=== PATIENT | male | born 1970 ===

== ENCOUNTER 2020-06-21 10:12 | Day surgery (SDC) | payer BC ==
[~2020-06-21 10:12] MED LIST: Lactated Ringers 1,000 ML IV SCH
--- NOTE | 2020-06-21 11:15 | PCM.PREANE ---
Preanesthetic Assessment - Anesthesia/Transfusion/Family Hx Anesthesia History: Prior Anesthesia Without Reaction Family History of Anesthesia Reaction: No Transfusion History: No Prior Transfusion(s) Intubation History: Unknown - Review of Systems General: No Symptoms Pulmonary: No Symptoms Cardiovascular: No Symptoms Gastrointestinal: Abdominal Pain, Hematochezia Neurological: No Symptoms Other: Reports: None - Physical Assessment Vital Signs: Last Vital Signs Temp 36.8 C 06/21/20 11:00 Pulse 84 06/21/20 11:00 Resp 16 06/21/20 11:00 BP 135/73 06/21/20 11:00 Pulse Ox 96 06/21/20 11:00 Height: 5 ft 10 in Weight: 134.717 kg ASA Class: 2 Mental Status: Alert & Oriented x3 Airway Class: Mallampati = 3 Dentition: Reports: Normal Dentition (bonded front tooth x1) Thyro-Mental Finger Breadths: 3 Mouth Opening Finger Breadths: 2 ROM/Head Extension: Full Lungs: Clear to Auscultation, Normal Respiratory Effort Cardiovascular: Regular Rate, Regular Rhythm - Allergies Allergies/Adverse Reactions: Allergies Allergy/AdvReac Type Severity Reaction Status Date / Time animal dander Allergy itchy/watery Verified 06/15/20 08:30 eyes Penicillins Allergy Rash Verified 06/15/20 08:17 - Blood Blood Available: No - Anesthesia Plan Pre-Op Medication Ordered: None - Acknowledgements Anesthesia Type Planned: MAC Pt an Appropriate Candidate for the Planned Anesthesia: Yes Alternatives and Risks of Anesthesia Discussed w Pt/Guardian: Yes Pt/Guardian Understands and Agrees with Anesthesia Plan: Yes PreAnesthesia Questionnaire HEENT History: Reports: Other (See Below) Other HEENT History: wears glasses Cardiovascular History: Reports: Hypertension Respiratory History: Reports: Asthma (mild) Gastrointestinal History: Reports: GERD Genitourinary History: Reports: None Musculoskeletal History: Reports: Fracture, Gout Other Musculoskeletal History: hx fx leg Neurological History: Reports: None Psychiatric History: Reports: None Endocrine/Metabolic History: Reports: Obesity/BMI 30+ (BMI 42.6) Hematologic History: Reports: None Immunologic History: Reports: None Oncologic (Cancer) History: Reports: None Dermatologic History: Reports: None - Past Surgical History Head Surgeries/Procedures: Reports: None HEENT Surgical History: Reports: None Cardiovascular Surgical History: Reports: None Respiratory Surgical History: Reports: None GI Surgical History: Reports: Hernia, Abdominal Male Surgical History: Reports: None Endocrine Surgical History: Reports: None Neurological Surgical History: Reports: None Musculoskeletal Surgical History: Reports: None Oncologic Surgical History: Reports: None Dermatological Surgical History: Reports: None - SUBSTANCE USE Tobacco Use Status *Q: Never Tobacco User - HOME MEDS Home Medications: Home Meds Albuterol [Proventil HFA] 2 puff INH Q4H PRN 06/15/20 [History] Allopurinol [Zyloprim] 300 mg PO DAILY 06/15/20 [History] Aspirin 325 mg PO DAILY 06/15/20 [History] Colchicine [Colcrys] 2 tab PO ASDIRECTED PRN 06/15/20 [History] Fluticasone Propionate [Flovent Hfa] 2 puff INH BID PRN 06/15/20 [History] Losartan Potassium 100 mg PO DAILY 06/15/20 [History] Omeprazole 20 mg PO DAILY 06/15/20 [History] amLODIPine Besylate [Amlodipine Besylate] 10 mg PO DAILY 06/15/20 [History] Arbonne Tab/Immune Support 1 tab PO DAILY 06/21/20 [History] - CURRENT (IN HOUSE) MEDS Current Meds: Current Medications Lactated Ringer's (Ringers, Lactated) 1,000 mls @ 125 mls/hr IV ASDIRECTED TIM Last Admin: 06/21/20 10:59 Dose: 125 mls/hr Documented by:
[2020-06-21] MEDS ORDERED: Propofol 200 MG/20 ML SDV ONE ×3 (11:28→13:09)
[2020-06-21] MEDS ORDERED: fentaNYL 100 MCG/2 ML SDV ONE (11:29)
[2020-06-21] MEDS ORDERED: Midazolam 1 MG/ML 2 ML SDV ONE (12:35)
--- NOTE | 2020-06-21 13:41 | PCM.OPNOTE ---
- General Post-Op/Procedure Note Date of Surgery/Procedure: 06/21/20 Operative Procedure(s): Colonoscopy Pre Op Diagnosis: Rectal bleeding. Desire for colorectal cancer screening. Post-Op Diagnosis: Sigmoid diverticulosis Anesthesia Technique: MAC (ASA II) Primary Surgeon: Eliel Murillo Condition: Good Free Text/Narrative:: DICTATION 140267 CPT CODE [id number]
[2020-06-21] MEDS ORDERED: Lactated Ringers 1,000 ML IV SCH (13:45)
--- NOTE | 2020-06-21 13:53 | PCM.POSTAN ---
POST ANESTHESIA ASSESSMENT - MENTAL STATUS Mental Status: Alert, Oriented - VITAL SIGNS Vital Signs: Last Vital Signs Temp 36.8 C 06/21/20 11:00 Pulse 82 06/21/20 13:40 Resp 12 06/21/20 13:40 BP 110/83 06/21/20 13:40 Pulse Ox 95 06/21/20 13:40 - RESPIRATORY Respiratory Status: Respiratory Rate WNL, Airway Patent, O2 Saturation Stable - CARDIOVASCULAR CV Status: Pulse Rate WNL, Blood Pressure Stable - GASTROINTESTINAL GI Status: No Symptoms - PAIN Pain Score: 0 - POST OP HYDRATION Hydration Status: Adequate & Stable - OBSERVATIONS Free Text/Narrative:: No anesthesia problems
--- NOTE | 2020-06-21 14:11 | PCM48HPAN ---
Post Anesthesia Note - EVALUATION WITHIN 48HRS OF ANESTHETIC Vital Signs in Normal Range: Yes Patient Participated in Evaluation: Yes Respiratory Function Stable: Yes Airway Patent: Yes Cardiovascular Function Stable: Yes Hydration Status Stable: Yes Pain Control Satisfactory: Yes Nausea and Vomiting Control Satisfactory: Yes Mental Status Recovered: Yes Vital Signs: Last Vital Signs Temp 36.8 C 06/21/20 11:00 Pulse 82 06/21/20 13:40 Resp 12 06/21/20 13:40 BP 110/83 06/21/20 13:40 Pulse Ox 95 06/21/20 13:40 - COMMENTS/OBSERVATIONS Free Text/Narrative:: No anesthesia problems
--- NOTE | 2020-06-21 16:14 | OR ---
SURGEON: Eliel Murillo M.D. DATE OF PROCEDURE: 06/21/2020 OPERATION PERFORMED: Colonoscopy. PRIMARY SURGEON: Eliel Murillo M.D. ANESTHESIA: MAC. ASA CLASSIFICATION: II. PREOPERATIVE DIAGNOSES: 1. Rectal bleeding. 2. Desire for colorectal cancer screening. POSTOPERATIVE DIAGNOSIS: Moderate sigmoid diverticulosis. DESCRIPTION OF PROCEDURE: The patient was taken to the endoscopy room and positioned on the endoscopy table in the left lateral decubitus position. Time-out was called for appropriate identification of the patient and procedure. Monitored anesthesia care was provided. The colonoscope was inserted into the rectum and advanced with minimal difficulty to the cecum. The colonoscope was retroflexed to visualize the ascending colon from below, then straightened and slowly withdrawn. The cecum, ascending colon, hepatic flexure, transverse colon, splenic flexure, and descending colon showed no tumors, polyps, diverticula, or angiodysplastic changes. The sigmoid colon demonstrated moderate diverticular disease. No stricture, spasm, or bleeding was noted. No inflammatory changes were noted. No polyps were encountered in the sigmoid colon. The colonoscope was further withdrawn to the rectum and retroflexed to visualize the anal orifice from above. No tumors, polyps, or acute hemorrhoidal changes were noted. The colonoscope was then straightened, the rectum aspirated, and the colonoscope removed. The patient tolerated the procedure well and was taken to the recovery room in stable condition. ALEJANDRA DASH /[id number]
== END 2020-06-21 14:12 | disposition home or self-care (01) ==
LOC: MW.SDS 10:12
PROVIDERS: ATTEND Surgery
DX: K57.30 Diverticulosis of large intestine without perforation or abscess without bleeding (principal); Z88.0 Allergy status to penicillin; Z79.899 Other long term (current) drug therapy; Z68.41 Body mass index [BMI] 40.0-44.9, adult; Z98.890 Other specified postprocedural states; E66.9 Obesity, unspecified; Z79.82 Long term (current) use of aspirin
CPT/HCPCS: 45378; J2001; J2250; J2704; J3010; J7120; 00811

== ENCOUNTER 2020-08-09 06:33 | Emergency (ER) | payer BC ==
--- NOTE | 2020-08-09 06:54 | EDM.PDOC ---
<Jairo Varela - Last Filed: 08/09/20 06:53> ED HPI GENERAL MEDICAL PROBLEM - General Chief Complaint: Chest Pain Stated Complaint: HEART ISSUE Time Seen by Provider: 08/09/20 06:45 - History of Present Illness INITIAL COMMENTS - FREE TEXT/NARRATIVE: CHIEF COMPLAINT(S): Chest pain HISTORY OF PRESENT ILLNESS: This is a 50-year-old man and with a past medical history of hypertension and asthma with possibly borderline diabetes who comes to the emergency department with a chief complaint of chest pain. The patient states that approximately 20 minutes prior to arrival after awakening he started to experience sudden onset sharp 7 out of 10. He denies any radiation of the pain. He states that he did get severely diaphoretic but denies any nausea, vomiting, shortness of breath. He denies any aggravating or relieving symptoms however his pain is currently 0 out of 10. He states that he does not have any personal history of CAD but his father does have CAD and his first heart attack was in his 60s. He denies any recent travel, recent surgery, prior history of DVT or PE. REVIEW OF SYSTEMS: Constitutional: For diaphoresis denies fever, chills. Eyes: Denies eye pain Ears, Nose, Mouth, & Throat: Denies earache Cardiovascular: Positive for chest pain Respiratory: Denies shortness of breath Gastrointestinal: Denies Nausea, vomiting, diarrhea, hematochezia. Genitourinary: Denies hematuria Skin:Denies a rash Neurological: Denies blurred vision Psychiatric: Denies depression PAST MEDICAL HISTORY: As per history of present illness and as reviewed below otherwise noncontributory. SURGICAL HISTORY: As per history of present illness and as reviewed below otherwise noncontributory. SOCIAL HISTORY: As per history of present illness and as reviewed below otherwise noncontributory. FAMILY HISTORY: As per history of present illness and as reviewed below otherwise noncontributory. EXAMINATION OF ORGAN SYSTEMS/BODY AREAS: Constitutional: Blood pressure was 146/84, heart rate 67, respiratory rate 22 with an oxygen saturation 97% on room air. Temperature 36.6 General: Overall well-appearing man who is in no acute distress. Psychiatric: Appropriate mood and affect. Eyes: No scleral icterus or conjunctival erythema ENMT: Moist mucous membranes. No pharyngeal erythema Cardiovascular: Regular, rate, and rhythm. No gallops, murmurs, or rubs. Bilateral upper extremity pulses symmetric and intact. No peripheral edema. No JVD. Respiratory: Lungs clear to auscultation bilaterally. No wheezes, rales, or rhonchi. Gastrointestinal: Soft, non-tender, non-distended. Normoactive bowel sounds Genitourinary: No suprapubic tenderness Musculoskeletal: Normal range of motion. Skin: No lesions or abrasions. Neurological: Alert, GCS 15 MEDICAL DECISION MAKING AND COURSE IN THE ED WITH INTERPRETATION/REVIEW OF DIAGNOSTIC STUDIES: This is a 50-year-old man with a past medical history of hypertension and possibly prediabetes who comes to the emergency department with acute right-sided chest pain associated with diaphoresis who is currently asymptomatic was hypertensive with otherwise stable vital signs. At this time we did obtain an EKG which did not reveal any acute signs of ischemia. Will obtain a cardiac work-up and place the patient on cardiac monitoring and pulse oximetry. The patient was provided with 3 and 25 mg prior to arrival. He states that he did take this. Will obtain a chest x-ray. Twelve-lead EKG interpreted by myself. Normal sinus rhythm at a rate of 64beats per minute. Normal axis. RI interval is 179ms. QRS duration is 94ms. ST seg ments are normal without elevations or depressions. No Q waves present. Hypertrophy not noted. There is a T wave inversion in lead III. Interpretation: Normal sinus rhythm with nonspecific T wave inversion. No prior EKGs in our system. DISPOSITION: Patient was signed out to oncoming ED team physician pending laboratory analysis and repeat troponin and x-ray CONDITION: Fair PROCEDURES: None FINAL IMPRESSION(S)/DIAGNOSES: 1. Acute chest pain Jairo Varela M.D. - Related Data Allergies Allergy/AdvReac Type Severity Reaction Status Date / Time animal dander Allergy itchy/watery Verified 08/09/20 06:42 eyes Penicillins Allergy Rash Verified 08/09/20 06:42 Home Meds: Home Meds Albuterol [Proventil HFA] 2 puff INH Q4H PRN 06/15/20 [History] Allopurinol [Zyloprim] 300 mg PO DAILY 06/15/20 [History] Aspirin 325 mg PO DAILY 06/15/20 [History] Colchicine [Colcrys] 2 tab PO ASDIRECTED PRN 06/15/20 [History] Fluticasone Propionate [Flovent Hfa] 2 puff INH BID PRN 06/15/20 [History] Losartan Potassium 100 mg PO DAILY 06/15/20 [History] Omeprazole 20 mg PO DAILY 06/15/20 [History] amLODIPine Besylate [Amlodipine Besylate] 10 mg PO DAILY 06/15/20 [History] Arbonne Tab/Immune Support 1 tab PO DAILY 06/21/20 [History] Past Medical History HEENT History: Reports: Other (See Below) Other HEENT History: wears glasses Cardiovascular History: Reports: Hypertension Respiratory History: Reports: Asthma Gastrointestinal History: Reports: Diverticulosis, GERD Genitourinary History: Reports: None Musculoskeletal History: Reports: Fracture, Gout Other Musculoskeletal History: hx fx leg Neurological History: Reports: None Psychiatric History: Reports: None Endocrine/Metabolic History: Reports: Obesity/BMI 30+ Hematologic History: Reports: None Immunologic History: Reports: None Oncologic (Cancer) History: Reports: None Dermatologic History: Reports: None - Past Surgical History Head Surgeries/Procedures: Reports: None HEENT Surgical History: Reports: None Cardiovascular Surgical History: Reports: None Respiratory Surgical History: Reports: None GI Surgical History: Reports: Hernia, Abdominal Male Surgical History: Reports: None Endocrine Surgical History: Reports: None Neurological Surgical History: Reports: None Musculoskeletal Surgical History: Reports: None Oncologic Surgical History: Reports: None Dermatological Surgical History: Reports: None Social & Family History - Family History Family Medical History: No Pertinent Family History - Tobacco Use Tobacco Use Status *Q: Never Tobacco User Second Hand Smoke Exposure: No - Recreational Drug Use Recreational Drug Use: No ED ROS GENERAL - Review of Systems Review Of Systems: See Below ED EXAM, GENERAL - Physical Exam Exam: See Below Departure - Departure Disposition: Home, Self-Care 01 Clinical Impression: Chest pain Instructions: Nonspecific Chest Pain, Adult, [id number] Forms: ED Department Discharge Additional Instructions: The following information is given to patients seen in the emergency department who are being discharged to home. This information is to outline your options for follow-up care. We provide all patients seen in our emergency department with a follow-up referral. The need for follow-up, as well as the timing and circumstances, are variable depending upon the specifics of your emergency department visit. If you don't have a primary care physician on staff, we will provide you with a referral. We always advise you to contact your personal physician following an emergency department visit to inform them of the circumstance of the visit and for follow-up with them and/or the need for any referrals to a consulting specialist. The emergency department will also refer you to a specialist when appropriate. This referral assures that you have the opportunity for follow-up care with a specialist. All of these measure are taken in an effort to provide you with optimal care, which includes your follow-up. Under all circumstances we always encourage you to contact your private physician who remains a resource for coordinating your care. When calling for follow-up care, please make the office aware that this follow-up is from your recent emergency room visit. If for any reason you are refused follow-up, please contact the [facility] Emergency Department at and asked to speak to the emergency department charge nurse. Please follow up with your primary care physician. If you do not have a primary care physician, see below: [place] [address] Follow-up with your primary care physician. We also provided number for cardiology please attempt to see them this week. If you have any increasing chest pain or other symptoms please return to the ED. Sepsis Event Note (ED) - Evaluation Sepsis Screening Result: No Definite Risk <Jorge L Pisano - Last Filed: 08/09/20 11:06> ED HPI GENERAL MEDICAL PROBLEM - General Source of Information: Reports: Patient #1 Interpretation EKG Date: 08/09/20 Time: 10:55 Rhythm: NSR Rate (Beats/Min): 66 ST-T: Normal Course - Vital Signs Last Recorded V/S: Last Vital Signs Temp 97.8 F 08/09/20 06:38 Pulse 66 08/09/20 08:48 Resp 18 08/09/20 08:48 BP 124/66 08/09/20 08:48 Pulse Ox 95 08/09/20 08:48 - Orders/Labs/Meds Orders: Active Orders 24 hr Category Date Time Status Blood Glucose Check, Bedside [RC] ONETIME Care 02/01/21 06:50 Active EKG Documentation Completion [RC] STAT Care 08/09/20 06:47 Active EKG Documentation Completion [RC] STAT Care 08/09/20 10:46 Ordered Labs: Laboratory Tests 08/09/20 08/09/20 08/09/20 Range/Units 06:45 06:45 07:00 WBC 10.12 (4.0-11.0) K/uL RBC 5.16 (4.50-5.90) M/uL Hgb 15.8 (13.0-17.0) g/dL Hct 47.6 (38.0-50.0) % MCV 92.2 (80.0-98.0) fL MCH 30.6 (27.0-32.0) pg MCHC 33.2 (31.0-37.0) g/dL RDW Std Deviation 43.6 (28.0-62.0) fl RDW Coeff of Jazmin 13 (11.0-15.0) % Plt Count 316 (150-400) K/uL MPV 9.80 (7.40-12.00) fL Neut % (Auto) 68.5 (48.0-80.0) % Lymph % (Auto) 16.5 (16.0-40.0) % [place] % (Auto) 9.7 (0.0-15.0) % Eos % (Auto) 4.9 (0.0-7.0) % Baso % (Auto) 0.4 (0.0-1.5) % Neut # (Auto) 6.9 H (1.4-5.7) K/uL Lymph # (Auto) 1.7 (0.6-2.4) K/uL [place] # (Auto) 1.0 H (0.0-0.8) K/uL Eos # (Auto) 0.5 (0.0-0.7) K/uL Baso # (Auto) 0.0 (0.0-0.1) K/uL Nucleated RBC % 0.0 /100WBC Nucleated RBCs # 0 K/uL Sodium 136 (136-148) mmol/L Potassium 4.1 (3.5-5.1) mmol/L Chloride 100 (98-107) mmol/L Carbon Dioxide 25.9 (21.0-32.0) mmol/L BUN 16 (7.0-18.0) mg/dL Creatinine 1.3 (0.8-1.3) mg/dL Est Cr Clr Drug Dosing 67.23 mL/min Estimated GFR (MDRD) 58.2 ml/min Glucose 104 (74-106) mg/dL POC Glucose 90 (60-110) mg/dL Calcium 9.9 (8.5-10.1) mg/dL Magnesium 2.1 (1.8-2.4) mg/dL Creatine Kinase (26-308) U/L Troponin I < 0.050 (0.000-0.056) ng/mL 08/09/20 Range/Units 09:55 WBC (4.0-11.0) K/uL RBC (4.50-5.90) M/uL Hgb (13.0-17.0) g/dL Hct (38.0-50.0) % MCV (80.0-98.0) fL MCH (27.0-32.0) pg MCHC (31.0-37.0) g/dL RDW Std Deviation (28.0-62.0) fl RDW Coeff of Jazmin (11.0-15.0) % Plt Count (150-400) K/uL MPV (7.40-12.00) fL Neut % (Auto) (48.0-80.0) % Lymph % (Auto) (16.0-40.0) % [place] % (Auto) (0.0-15.0) % Eos % (Auto) (0.0-7.0) % Baso % (Auto) (0.0-1.5) % Neut # (Auto) (1.4-5.7) K/uL Lymph # (Auto) (0.6-2.4) K/uL [place] # (Auto) (0.0-0.8) K/uL Eos # (Auto) (0.0-0.7) K/uL Baso # (Auto) (0.0-0.1) K/uL Nucleated RBC % /100WBC Nucleated RBCs # K/uL Sodium (136-148) mmol/L Potassium (3.5-5.1) mmol/L Chloride (98-107) mmol/L Carbon Dioxide (21.0-32.0) mmol/L BUN (7.0-18.0) mg/dL Creatinine (0.8-1.3) mg/dL Est Cr Clr Drug Dosing mL/min Estimated GFR (MDRD) ml/min Glucose (74-106) mg/dL POC Glucose (60-110) mg/dL Calcium (8.5-10.1) mg/dL Magnesium (1.8-2.4) mg/dL Creatine Kinase 80 (26-308) U/L Troponin I < 0.050 (0.000-0.056) ng/mL - Re-Assessments/Exams Free Text/Narrative Re-Assessment/Exam: 08/09/20 10:56 Patient EKG remains unchanged after 4 hours. Tropes negative x2. With a heart score of 3. Patient will be discharged home have rapid cardiology follow-up. Departure - Departure Time of Disposition: 11:03 Sepsis Event Note (ED) - Focused Exam Vital Signs: Vital Signs Temp Pulse Resp BP Pulse Ox 08/09/20 08:48 66 18 124/66 95 08/09/20 08:18 68 18 129/67 08/09/20 07:48 61 125/70 08/09/20 07:18 65 18 119/70 08/09/20 06:38 97.8 F 67 22 H 146/84 H 97 - My Orders Last 24 Hours: My Active Orders 08/09/20 10:46 EKG Documentation Completion [RC] STAT - Assessment/Plan Last 24 Hours: My Active Orders 08/09/20 10:46 EKG Documentation Completion [RC] STAT
--- NOTE | 2020-08-09 07:04 | CR ---
INDICATION: Chest pain COMPARISON: None TECHNIQUE: Single-view study FINDINGS: TUBES AND LINES: None. HEART AND MEDIASTINUM: The heart size is normal. The mediastinal contour appears normal for patient age. LUNGS AND PLEURAL SPACES: The lungs appear normal.The pleural spaces are unremarkable. OSSEOUS STRUCTURES: Age-appropriate appearance. No acute focal finding. IMPRESSION: No evidence of active pulmonary disease. Dictated by Romeo Mendenhall MD @ Aug 09 2020 7:03AM Signed by Dr. Romeo Mendenhall @ Aug 09 2020 7:03AM
[2020-08-09 07:14] LABS: BLOOD UREA NITROGEN,BUN 16 mg/dL (7.0-18.0); CARBON DIOXIDE,CO2 25.9 mmol/L (21.0-32.0); CHLORIDE,CL 100 mmol/L (98-107); GLUCOSE RANDOM 104 mg/dL (74-106); POTASSIUM,K 4.1 mmol/L (3.5-5.1); SODIUM,NA 136 mmol/L (136-148)
== END 2020-08-09 11:13 | disposition home or self-care (01) ==
LOC: MW.ED 06:33
DX: R07.9 Chest pain, unspecified (principal); J45.909 Unspecified asthma, uncomplicated; I10 Essential (primary) hypertension; M10.9 Gout, unspecified; K21.9 Gastro-esophageal reflux disease without esophagitis; E66.9 Obesity, unspecified; Z68.41 Body mass index [BMI] 40.0-44.9, adult; Z91.048 Other nonmedicinal substance allergy status; Z88.0 Allergy status to penicillin; Z79.82 Long term (current) use of aspirin; Z79.899 Other long term (current) drug therapy
CPT/HCPCS: 36415; 71045; 71045-26; 80048; 82550; 82962; 83735; 84484; 85025; 93005; 93010; 99283; 99285-25